=== PATIENT | male | born 1995 | race Caucasian/White ===

== ENCOUNTER 2024-03-05 11:15 | Emergency (ER) | payer OTHER ==
[~2024-03-05] VITALS: Ht 185.4 cm; Wt 87.4 kg
[2024-03-05 11:22] VITALS: BP 120/73; TEMP 98; O2SAT 100
[2024-03-05] MEDS ORDERED: AMPH1CAP16 (11:30)
== END 2024-03-05 14:07 | disposition left against medical advice (07) ==
LOC: M ED 11:15
DX: Z53.21 Procedure and treatment not carried out due to patient leaving prior to being seen by health care provider (principal)

== ENCOUNTER → 2024-07-05 | Outpatient (REF) ==
[~2024-07-05] MED LIST: AMPH1CAP16
== END ==
LOC: M PLAIMG 10:52
PROVIDERS: ATTEND Internal Medicine
DX: R06.02 Shortness of breath (principal)